=== PATIENT | male | born 1945 | race Caucasian/White ===

== ENCOUNTER → 2023-06-14 08:08 | Outpatient (REF) | payer MEDICARE, OTHER, SELFPAY ==
[2023-06-14 10:18] LABS: % Basophils 0.8 % (0-2); % Eosinophils 2.8 % (0-6); % Immature Granulocytes 0.3 % (0-0.5); % Lymphocytes 24.7 % (20.5-51.1); % Monocytes 7.9 % (1.7-9.3); % Neutrophils 63.5 % (42.2-75.2); Absolute Basophils 0.1 10^3/uL (0-0.2); Absolute Eosinophils 0.3 10^3/uL (0-0.7); Absolute Lymphocytes 2.2 10^3/uL (1.2-3.4); Absolute Monocytes 0.7 10^3/uL (0.1-0.6); Absolute Neutrophils 5.7 10^3/uL (1.4-6.5); Hematocrit 41.3 % (39.0-52.0); Mean Corp Hgb Conc. 33.9 g/dL (33.0-37.0); Mean Corpuscular Hgb 32.5 pg (27.0-31.0); Mean Corpuscular Volume 95.8 fL (80.0-94.0); Mean Platelet Volume 9.5 fL (7.4-10.4); Nucleated Red Blood Cells % 0 % (-); Platelet Count 199 10^3/uL (130-400); Red Blood Cell Count 4.31 10^6/uL (4.70-6.10); Red Cell Dist. Width 12.4 % (11.5-14.5)
[2023-06-14 10:26] LABS: ALT (SGPT) 33 U/L (0-50); AST (SGOT) 39 U/L (17-59); Albumin 4.2 g/dl (3.5-5.0); Alkaline Phosphatase 63 U/L (38-126); Blood Urea Nitrogen 19 mg/dl (9-20); Calcium 9.4 mg/dl (8.4-10.2); Carbon Dioxide 26 mmol/L (22-30); Chloride 106 mmol/L (98-107); Glucose 93 mg/dl (70-99); Potassium 4.3 mmol/L (3.5-5.1); Sodium 138 mmol/L (135-145); Total Protein 7.2 g/dl (6.3-8.2); eGFR > 60.00
[2023-06-14 10:55] LABS: Urine Albumin Negative (Neg - Trace); Urine Bilirubin Negative (Negative); Urine Character Clear (Clear); Urine Color Yellow; Urine Glucose Negative (Negative); Urine Ketone Negative (Negative); Urine Leukocyte Negative (Negative); Urine Nitrite Negative (Negative); Urine Occult Blood Negative (Negative); Urine Specific Gravity 1.015 (<1.030); Urine Urobilinogen Negative (Neg - 1+)
== END ==
LOC: REG 08:08
PROVIDERS: ATTENDING PHYSICIAN Specialist; FAMILY PHYSICIAN Internal Medicine
DX: R80.9 Proteinuria, unspecified (principal); I10 Essential (primary) hypertension; R06.09 Other forms of dyspnea; N18.30 Chronic kidney disease, stage 3 unspecified
CPT/HCPCS: 36415; 80053; 81003; 85025

== ENCOUNTER → 2023-06-27 06:30 | Outpatient (REF) | payer MEDICARE, OTHER, SELFPAY ==
[2023-06-27 07:44] LABS: HDL Cholesterol 53 mg/dl; LDL Cholesterol, Calculated 67 mg/dl; Total Cholesterol 140 mg/dl (50-199); Triglyceride 103 mg/dl (10-149); Very Low Density Lipoprotein 20 mg/dl (0-30)
[2023-06-27 08:20] LABS: PSA, Total - Screen 1.19 ng/ml (0.0-4.0)
== END ==
LOC: REG 06:30
PROVIDERS: ATTENDING PHYSICIAN Internal Medicine
DX: Z00.00 Encounter for general adult medical examination without abnormal findings (principal); I10 Essential (primary) hypertension; Z12.5 Encounter for screening for malignant neoplasm of prostate
CPT/HCPCS: 36415; 80061; G0103

== ENCOUNTER → 2023-07-11 11:25 | Outpatient (REF) | payer MEDICARE, OTHER, SELFPAY | LOC: RAD 11:25 | PROVIDERS: ATTENDING PHYSICIAN Physician Assistant; FAMILY PHYSICIAN Nurse Practitioner Adult Health | DX: M12.812 Other specific arthropathies, not elsewhere classified, left shoulder (principal); M25.512 Pain in left shoulder; M48.00 Spinal stenosis, site unspecified | CPT/HCPCS: 72100; 73030 ==

== ENCOUNTER → 2023-11-08 07:18 | Outpatient (REF) | payer MEDICARE, OTHER, SELFPAY ==
[2023-11-08 08:47] LABS: % Basophils 0.7 % (0-2); % Eosinophils 3.2 % (0-6); % Immature Granulocytes 0.3 % (0-0.5); % Monocytes 6.4 % (1.7-9.3); % Neutrophils 57.4 % (42.2-75.2); Absolute Basophils 0.1 10^3/uL (0-0.2); Absolute Eosinophils 0.3 10^3/uL (0-0.7); Absolute Monocytes 0.6 10^3/uL (0.1-0.6); Absolute Neutrophils 5.4 10^3/uL (1.4-6.5); Hematocrit 42.8 % (39.0-52.0); Hemoglobin 14.1 g/dL (13.0-18.0); Mean Corp Hgb Conc. 32.9 g/dL (33.0-37.0); Mean Corpuscular Hgb 32.1 pg (27.0-31.0); Mean Corpuscular Volume 97.5 fL (80.0-94.0); Mean Platelet Volume 9.3 fL (7.4-10.4); Nucleated Red Blood Cells % 0 % (-); Platelet Count 201 10^3/uL (130-400); Red Blood Cell Count 4.39 10^6/uL (4.70-6.10); White Blood Cell Count 9.4 10^3/uL (4.8-10.8)
[2023-11-08 09:15] LABS: ALT (SGPT) 33 U/L (0-50); AST (SGOT) 30 U/L (17-59); Albumin 4.4 g/dl (3.5-5.0); Alkaline Phosphatase 72 U/L (38-126); Blood Urea Nitrogen 27 mg/dl (9-20); Calcium 9.7 mg/dl (8.4-10.2); Carbon Dioxide 28 mmol/L (22-30); Chloride 104 mmol/L (98-107); Glucose 94 mg/dl (70-99); Iron 97 ug/dl (49-181); Potassium 4.2 mmol/L (3.5-5.1); Sodium 140 mmol/L (135-145); Total Bilirubin 0.7 mg/dl (0.2-1.3); Total Protein 7.2 g/dl (6.3-8.2); eGFR > 60.00
[2023-11-08 09:25] LABS: Percent Saturation 31 % (20-50); Total Iron Binding Capacity 307 ug/dl (261-462)
[2023-11-08 09:43] LABS: TSH Reflex To Free T4 2.06 uIU/ml (0.47-4.68)
== END ==
LOC: REG 07:18
PROVIDERS: ATTENDING PHYSICIAN Specialist; FAMILY PHYSICIAN Internal Medicine
DX: R80.9 Proteinuria, unspecified (principal); I10 Essential (primary) hypertension; N18.30 Chronic kidney disease, stage 3 unspecified; R53.83 Other fatigue
CPT/HCPCS: 36415; 80053; 82728; 83540; 83550; 84443; 85025

== ENCOUNTER → 2024-03-26 15:17 | Outpatient (REF) | payer MEDICARE, OTHER, SELFPAY | LOC: RCS 15:17 | PROVIDERS: ATTENDING PHYSICIAN Student in an Organized Health Care Education/Training Program; FAMILY PHYSICIAN Nurse Practitioner Adult Health | DX: I35.0 Nonrheumatic aortic (valve) stenosis (principal) | CPT/HCPCS: 93306 ==

== ENCOUNTER 2024-06-09 13:36 | Day surgery (SDC) | payer OTHER, SELFPAY ==
[2024-06-09 07:52] VITALS: BP 146/74
--- NOTE | 2024-06-09 09:16 | ED.GENMED ---
History of Present Illness
General
Chief Complaint: Swallowing Problem
Source: patient
Time Seen by Provider: 06/09/24 08:56
History of Present Illness
History of Present Illness:
79-year-old male presents emergency room stating he has a obstructed esophagus. Patient was consuming chicken soup last night when a piece of chicken seem to get stuck. Since then he has been spitting up saliva and unable to swallow any liquids.
Patient's had similar event in the past requiring endoscopy. No other complaints.
Past History
Past History
ED Past Medical History: GERD, Hypercholesterolemia and Other (bph)
ED Past Surgical History: Appendectomy, Cholecystectomy and Orthopedic (Back surgery to repair a slipped disc)
Social History
Tobacco: Former smoker
Alcohol: Occasional
Drug: None
Personal:
Living: with family
Phy Exam
Physical Exam
Physical Exam:
General: Awake, Alert, Oriented X3. No acute distress. Spitting secretions into a large ball of tissues
Vitals: unremarkable
Head: Atraumatic
Eyes: Pupils equal, EOMI
Throat: Airway intact, no exudates
Neck: Trachea midline
Lungs: Clear and equal b/l
Heart: Regular rate, no murmurs
Abd: Soft, Nontender, No pulsatile mass
Neuro: Nonfocal
Skin: Warm, dry, no rash
Extremities: pulses equal b/l, no edema
Course
Orders/Labs/Results
Orders:
Orders
06/09/24 09:15
Glucagon [GlucaGen] 1 mg IV NOW STA
06/09/24 12:11
Dexamethasone Sod Phosphate [Decadron] 20 mg .ROUTE .STK-MED ONE
Lidocaine HCl/Pf [Xylocaine-Mpf 1% Vial] 50 mg .ROUTE .STK-MED ONE
Rocuronium [place] [Rocuronium] 50 mg .ROUTE .STK-MED ONE
Sugammadex Sodium [Bridion] 200 mg .ROUTE .STK-MED ONE
06/09/24 12:12
Midazolam HCl [Versed] 2 mg .ROUTE .STK-MED ONE
Ondansetron Injectable [Zofran] 4 mg .ROUTE .STK-MED ONE
Propofol [Diprivan] 20 ml .ROUTE .STK-MED
Succinylcholine Chloride [Succinylcholine] 200 mg .ROUTE .STK-MED ONE
06/09/24 12:40
0.9% Sodium Chloride 1000 ml [Nss] 1,000 ml IV BOLUS
Vital Signs
Initial and Last Documented VS:
Initial Vital Signs
Temp Pulse Resp BP Pulse Ox
97.7 F 69 18 146/74 99
06/09/24 07:52 06/09/24 07:52 06/09/24 07:52 06/09/24 07:52 06/09/24 07:52
Last Documented Vital Signs
Temp Pulse Resp BP Pulse Ox
97.6 F 67 16 146/74 100
06/09/24 13:37 06/09/24 13:37 06/09/24 13:37 06/09/24 07:52 06/09/24 13:37
MDM/Problems Addressed
Differential Diagnosis Includes:
Esophageal food impaction, esophageal stricture, GERD
MDM/Problems Addressed:
Patient presents with signs and symptoms of a obstructed esophagus due to food impaction. Patient did not improve with IV glucagon. Patient evaluated by GI who will take him to the GI lab for endoscopic removal of food impaction
*Pulse Oximetry
Patient hypoxic: no
*Critical Care Note
Total Time (30-74mins, 75-104mins- exclusive of procedures): Not Applicable
Patient Management
Social determinants of health affecting care: Strong social support
ED Attending Note
-
Portions of this chart may have been created with voice recognition software.� Occasional wrong word or��sound alike� substitutions may have occurred due to the inherent limitations of voice recognition software.
Discharge Plan
Departure
Patient Disposition: GI LAB
Date of Disposition: 06/09/24
Time of Disposition: 11:25
Presentation/result/management discussed w/ accepting MD/DO: Dr. Vaz
Discharge Problem:
Food impaction of esophagus
Interventions
Interventions:
*Risk Screen - Suicide Last Done: 06/09/24 07:52
*General Assessment Last Done: 06/09/24 07:52
*Neglect/Abuse Screening Last Done: 06/09/24 07:52
*Nursing Disposition Last Done: 06/09/24 12:41
QJ-Dvbogo-Iavlonaynv Assessment Last Done: 06/09/24 09:18
ED-EENT Assessment Last Done: 06/09/24 09:18
ED- Neurological Assessment Last Done: 06/09/24 09:18
ED- Pulmonary Assessment Last Done: 06/09/24 09:18
Discharge Date and Time
Discharge Date/Time: 06/09/24 12:42
[2024-06-09 09:18] VITALS: BMI 24.9
[2024-06-09] MEDS: GlucaGen 1 MG IV (09:30)
--- NOTE | 2024-06-09 12:03 | CON.GI ---
Addendum entered and electronically signed by Ferdinand Vaz DO 06/09/24 13:01:
I saw and examined the patient.
The ELECTROMECHANICAL TECHNICIAN's note was reviewed and I agree with the note.
Comment: Plan for urgent EGD today, 06/09/2024, given inability to tolerate/manage secretions in setting of food impaction. No relief after IV Glucagon. Discussed risks and benefits of endoscopy with both patient and family at bedside. See same day
EGD report for additional findings/recommendations.
Original Note:
Consultation
-
Date/Time Consultation Requested: 06/09/24 1135
Date/Time Consultation Performed: 06/09/24 1145
Requesting Provider: Dr. Ventura
Performing Provider: Dr. Vaz/JEFF Paulino
Reason for Consultation: food impaction
Medical History
Chief Complaint / HPI
Chief Complaint: food impaction
History of Present Illness:
79-year-old male with past medical history of BPH, hypertension, hyperlipidemia, renal insufficiency, prior history of peptic ulcer disease with H. 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
Schatzki's ring, hiatal hernia (2018) who presents to the emergency room today with food impaction of chicken yesterday afternoon. Patient states that he was eating chicken noodle soup from local [employer] restaurant with large chunks of chicken and
it. He felt the chicken get lodged in the center of his chest. Despite multiple attempts at dislodgment he was unable to pass this. This included forced regurgitation, liquids without abatement of symptoms. The patient was unable to tolerate
secretions. He did wait to see if this would eventually pass. He sat upright and did wait to come to the emergency room until this a.m. In the ER they tried glucagon. They also tried a liquid trial with inability to tolerate secretions. We are
asked to evaluate for food bolus. At the present time the patient is in no apparent distress. He is with his family member. He feels discomfort in the bottom of his esophagus where the sternum meets. He denies any fevers, chills, melena,
hematochezia, odynophagia, early satiety or unintentional weight loss. He did require EGD with food bolus obstruction of pickel back in 2018. The patient does not take any NSAIDs. Medications include atorvastatin, doxazosin and finasteride. He
does not smoke. He does not drink any alcohol. No family history of gastrointestinal malignancy or IBD. Plan is for urgent EGD. Discussed risk benefit ratios and alternatives. Also discussed that he would require intubation for this procedure.
He has a ride home for after procedure.
Past Medical History
Past Medical History: Other (BPH, hypertension, hyperlipidemia, renal insufficiency, peptic ulcer disease with H. pylori. Eradicated. Spinal stenosis. Malignant growth right eye, food impaction, Schatzki's ring, hiatal hernia)
Social History
Tobacco: Non-Smoker
Alcohol: None
Drug: None
Family History
Family History: Other (Family history gastrointestinal malignancy or IBD)
Allergies / Home Medications
Allergy/AdvReac Type Severity Reaction Status Date / Time
No Known Allergies Allergy Unverified 06/09/24 07:52
�Medication �Instructions �Recorded
2nd Unknown Bph Med 1 tab PO DAILY 11/30/17
Omeprazole 1 tab PO DAILY 11/30/17
Unknown Bph Med 1 tab PO DAILY 11/30/17
cephalexin 500 mg capsule 500 mg PO TID #21 caps 12/23/18
Review of Systems
-
All other systems: A 12 pt ROS was Negative except as stated above in HPI
Vital Signs
Temp Pulse Resp BP Pulse Ox
97.7 F 69 18 146/74 99
06/09/24 07:52 06/09/24 07:52 06/09/24 07:52 06/09/24 07:52 06/09/24 07:52
Physical Exam
Exam
General: No Apparent Distress
HEENT: Anicteric
Respiratory: Clear
Cardiac: Regular Rhythm
GI: Soft, Non Tender, Non Distended and Normal Bowel Sounds
Musculoskeletal: No Edema
Skin: Warm and Dry
Neuro: AO x 3
Psych: Calm
Results
Diagnostic Image Results:
None
Prior GI Procedures:
EGD 12/25/2017 (Dr. Neal) - Tortuous esophagus.
- Abnormal esophageal motility, consistent with
presbyesophagus.
- Mild Schatzki ring.
- Small hiatal hernia.
- Chronic gastritis. Biopsied.
- Normal duodenal bulb.
- Marked esophogeal dysmotility with acute angle just
above a Schatzki ring, no stricture no resistance to
passage of the scope. Ring is wide open
EGD: 11/30/2017 (Dr. Heller) - Normal upper third of esophagus, middle third of
esophagus and lower third of esophagus.
- Food at the lower esophageal sphincter. Removal was
successful.
- Moderate Schatzki ring.
- Small hiatal hernia.
- Food was found in the stomach.
- Normal examined duodenum.
EGD 04/29/2017 (Dr. Neal) - Tortuous esophagus.
- Abnormal esophageal motility, suspicious for
presbyesophagus.
- Medium-sized hiatal hernia.
- Chronic gastritis. Biopsied.
- Normal third portion of the duodenum.
- Mild Schatzki ring.
COLO 01/28/2023 (Dr. Rhodes) - Diverticulosis in the sigmoid colon.
- Internal hemorrhoids.
- No specimens collected.
Colonoscopy: 12/16/2014 (Dr. Neal) - Diverticulosis in the sigmoid colon.
- The examination was otherwise normal.
Assessment / Plan
-
79-year-old male with past medical history of BPH, hypertension, hyperlipidemia, renal insufficiency, prior history of peptic ulcer disease with H. 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
Schatzki's ring, hiatal hernia (2018) who presents to the emergency room today with food impaction of chicken yesterday afternoon. We are asked to evaluate for the same. The patient was eating large chunk of chicken from chicken soup. Has been
lodged since yesterday afternoon. Inability to tolerate liquids or oral secretions despite attempts in ER with glucagon and liquid trial. Attempted forced regurgitation at home. No chest pain. No crepitus. No shortness of breath. Lungs clear.
Patient has not had any liquids. Discussed with ER will give IV fluids. Plan on urgent endoscopy. Discussed with patient and family member at bedside. Will require intubation for EGD for airway protection.
Impression:
Food impaction
History of Schatzki's ring
Plan:
-NPO
-IV fluids
-Urgent endoscopy
-Patient has ride home post endoscopy.
-Further recommendations to be forthcoming after EGD.
-
-
Thank you for consultation and allowing me to participate in the patient's care. Please call the occupational medicine specialist GI physician during the after hours with any questions or concerns.
[2024-06-09 13:37] VITALS: BP 146/74
[2024-06-09 13:45] VITALS: BP 133/82
[2024-06-09 14:02] VITALS: BP 131/72
[2024-06-09 14:15] VITALS: BP 135/76
== END 2024-06-09 14:41 | disposition home or self-care (01) ==
LOC: GI 13:36
PROVIDERS: ATTENDING PHYSICIAN Student in an Organized Health Care Education/Training Program; EMERGENCY PHYSICIAN Emergency Medicine
DX: T18.108A Unspecified foreign body in esophagus causing other injury, initial encounter (principal); T18.128A Food in esophagus causing other injury, initial encounter; W44.F3XA Food entering into or through a natural orifice, initial encounter; K22.2 Esophageal obstruction; K22.10 Ulcer of esophagus without bleeding
CPT/HCPCS: 43235; 96374; 99284; J1610

== ENCOUNTER → 2024-07-27 07:36 | Outpatient (REF) | payer MEDICARE, OTHER, SELFPAY ==
[2024-07-27 08:26] LABS: % Basophils 0.9 % (0-2); % Immature Granulocytes 0.4 % (0-0.5); % Lymphocytes 33.5 % (20.5-51.1); % Monocytes 6.1 % (1.7-9.3); % Neutrophils 55.1 % (42.2-75.2); Absolute Basophils 0.1 10^3/uL (0-0.2); Absolute Eosinophils 0.3 10^3/uL (0-0.7); Absolute Lymphocytes 2.9 10^3/uL (1.2-3.4); Absolute Monocytes 0.5 10^3/uL (0.1-0.6); Absolute Neutrophils 4.7 10^3/uL (1.4-6.5); Hemoglobin 13.7 g/dL (13.0-18.0); Mean Corp Hgb Conc. 33.4 g/dL (33.0-37.0); Mean Corpuscular Hgb 32.4 pg (27.0-31.0); Mean Corpuscular Volume 96.9 fL (80.0-94.0); Mean Platelet Volume 9.3 fL (7.4-10.4); Nucleated Red Blood Cells % 0 % (-); Platelet Count 173 10^3/uL (130-400); Red Blood Cell Count 4.23 10^6/uL (4.70-6.10); Red Cell Dist. Width 12.6 % (11.5-14.5); White Blood Cell Count 8.6 10^3/uL (4.8-10.8)
[2024-07-27 09:07] LABS: ALT (SGPT) 26 U/L (0-50); AST (SGOT) 27 U/L (17-59); Albumin 4.2 g/dl (3.5-5.0); Alkaline Phosphatase 62 U/L (38-126); Blood Urea Nitrogen 22 mg/dl (9-20); Calcium 9.7 mg/dl (8.4-10.2); Carbon Dioxide 27 mmol/L (22-30); Chloride 104 mmol/L (98-107); Glucose 93 mg/dl (70-99); HDL Cholesterol 51 mg/dl; LDL Cholesterol, Calculated 68 mg/dl; Sodium 139 mmol/L (135-145); Total Bilirubin 1.2 mg/dl (0.2-1.3); Total Cholesterol 140 mg/dl (50-199); Total Protein 6.7 g/dl (6.3-8.2); Triglyceride 105 mg/dl (10-149); Very Low Density Lipoprotein 21 mg/dl (0-30); eGFR > 60.00
[2024-07-27 10:05] LABS: PSA, Total - Screen 0.78 ng/ml (0.0-4.0)
== END ==
LOC: REG 07:36
PROVIDERS: ATTENDING PHYSICIAN Internal Medicine
DX: Z00.00 Encounter for general adult medical examination without abnormal findings (principal); Z12.5 Encounter for screening for malignant neoplasm of prostate; T18.128A Food in esophagus causing other injury, initial encounter; E78.5 Hyperlipidemia, unspecified; Z68.30 Body mass index [BMI] 30.0-30.9, adult
CPT/HCPCS: 36415; 80053; 80061; 85025; G0103

== ENCOUNTER 2024-08-04 06:23 | Day surgery (SDC) | payer MEDICARE, OTHER, SELFPAY | END 2024-08-04 15:24 | disposition home or self-care (01) | LOC: GI 06:23 | PROVIDERS: ATTENDING PHYSICIAN Student in an Organized Health Care Education/Training Program; FAMILY PHYSICIAN Internal Medicine | DX: K22.2 Esophageal obstruction (principal); K44.9 Diaphragmatic hernia without obstruction or gangrene | CPT/HCPCS: 43249 ==

== ENCOUNTER → 2025-01-07 12:29 | Outpatient (REF) | payer MEDICARE, OTHER, SELFPAY ==
[2025-01-07 14:31] LABS: Urine Character Clear (Clear)
[2025-01-07 14:47] LABS: Urine Squamous Cell 0-2 /LPF (Few)
[2025-01-07 14:50] LABS: Urine Red Blood Cell 0-2 /HPF (0-2)
== END ==
LOC: REG 12:29
PROVIDERS: ATTENDING PHYSICIAN Specialist; FAMILY PHYSICIAN Nurse Practitioner Adult Health
DX: I10 Essential (primary) hypertension (principal)
CPT/HCPCS: 81003; 81015

== ENCOUNTER → 2025-01-14 09:21 | Outpatient (REF) | payer MEDICARE, OTHER, SELFPAY | LOC: REG 09:21 | PROVIDERS: ATTENDING PHYSICIAN Specialist; FAMILY PHYSICIAN Nurse Practitioner Adult Health | DX: I10 Essential (primary) hypertension (principal); R80.9 Proteinuria, unspecified; E78.5 Hyperlipidemia, unspecified | CPT/HCPCS: 36415; 82570; 84156 ==

== ENCOUNTER 2025-03-12 11:17 | Day surgery (SDC) | payer MEDICARE, OTHER, SELFPAY ==
[2025-03-12] VITALS (15 sets, daily range): BP systolic 108–151; BP diastolic 61–94; BMI 25.9
[2025-03-12 03:50] LABS: Hematocrit 42.0 % (39.0-52.0); Hemoglobin 14.2 g/dL (13.0-18.0); Mean Corp Hgb Conc. 33.8 g/dL (33.0-37.0); Mean Corpuscular Volume 95.5 fL (80.0-94.0); Nucleated Red Blood Cells % 0 % (-); Platelet Count 178 10^3/uL (130-400); Red Cell Dist. Width 12.4 % (11.5-14.5)
[2025-03-12 04:11] LABS: ALT (SGPT) 39 U/L (0-50); AST (SGOT) 42 U/L (17-59); Albumin 4.6 g/dl (3.5-5.0); Alkaline Phosphatase 45 U/L (38-126); Blood Urea Nitrogen 31 mg/dl (9-20); Calcium 9.6 mg/dl (8.4-10.2); Carbon Dioxide 20 mmol/L (22-30); Chloride 111 mmol/L (98-107); Glucose 102 mg/dl (70-99); Lipase 111 U/L (23-300); Potassium 4.6 mmol/L (3.5-5.1); Sodium 144 mmol/L (135-145); Total Protein 7.7 g/dl (6.3-8.2); eGFR > 60.00
[2025-03-12 04:53] LABS: Urine Character Clear (Clear)
--- NOTE | 2025-03-12 04:57 | ED.GENMED ---
History of Present Illness
General
Chief Complaint: Abdominal Symptoms
Source: patient
Exam Limitations: none
Time Seen by Provider: 03/12/25 04:24
Nursing documentation reviewed up to this point in time: agreed with
History of Present Illness
History of Present Illness:
79-year-old male with a past medical history of GERD, hiatal hernia, PUD who presents to the emergency department concern for esophageal food bolus. Patient reports that yesterday morning at around 8 AM he was eating breakfast and had a large piece
of sausage and when he swallowed it he felt that he got stuck in his lower esophagus. He says he has not been able to get it to pass since despite trying to drink water, soda. He says he has spit up/vomited anything he tries to swallow including
mucus. Came to the ER for treatment. Had similar episode in July [address] Vaz. Denies any breathing issues or any other acute issues.
Past History
Past History
ED Past Medical History: GERD, Hypercholesterolemia and Other (bph)
ED Past Surgical History: Appendectomy, Cholecystectomy and Orthopedic (Back surgery to repair a slipped disc)
Social History
Tobacco: Former smoker
Alcohol: Occasional
Drug: None
Personal:
Living: with family
Review of Systems
Review of Systems
All Other Systems: ROS reviewed and negative except as documented in HPI and ROS
Respiratory: Denies trouble breathing
Cardiac: Reports chest pain (Esophageal food obstruction)
ABD/GI: Reports vomiting; Denies abdominal pain
Phy Exam
Physical Exam
Physical Exam:
General: Awake, alert, oriented x3; sitting up in bed holding emesis bag and spitting into it
Head: Normocephalic, atraumatic
Eyes: Conjunctiva normal
Throat: Airway intact, handling secretions
Neck: Trachea midline, supple without meningismus
Lungs: Clear to auscultation bilaterally, no wheezing, rales, rhonchi
Heart: Regular rate and rhythm, no murmurs, gallops, or rubs
Abd: Soft, non distended, nontender
Neuro: Grossly intact
Extremities: Warm and well-perfused
Scores
Heart Failure Risk
Heart Failure Risk Score: Not Applicable
Heart Score for Chest Pain Patients
STEMI patient?: Not applicable
Withdrawal Assessment of Alcohol
Withdrawal Assessment Completed?: Not applicable
Course
Orders/Labs/Results
Orders:
Orders
03/12/25 01:47
IV Insert/Care/Rem.- Treatment PRN
03/12/25 03:34
Complete Blood Count/With Diff Urgent
Comprehensive Metabolic Panel Urgent
Lipase Urgent
03/12/25 03:35
Urinalysis Reflex To Culture Urgent
Date Specimen was Collected: 03/12/25
Time Specimen was Collected: 01:47
Urine Microscopic Reflex Cult Urgent
Urine Culture Urgent
JORDEN Source: U
Specimen Description:
Date Specimen was Collected: 03/12/25
Time Specimen was Collected: 01:47
03/12/25 04:54
Glucagon [GlucaGen] 1 mg IV NOW STA
03/12/25 04:56
Consult Gastroenterology [GASTROINTESTINAL CONSULT] Urgent
Consulting Provider: Blaze Green
Was physician already notified: Yes
03/12/25 06:42
Glucagon [GlucaGen] 1 mg IV NOW STA
Abnormal Lab Results
03/12/25 03/12/25
03:34 03:35
RBC 4.40 L 10^6/uL
(4.70-6.10)
MCV 95.5 H fL
(80.0-94.0)
MCH 32.3 H pg
(27.0-31.0)
Absolute Neuts (auto) 7.0 H 10^3/uL
(1.4-6.5)
Chloride 111 H mmol/L
(98-107)
Carbon Dioxide 20 L mmol/L
(22-30)
BUN 31 H mg/dl
(9-20)
Glucose 102 H mg/dl
(70-99)
Urine Ketones 3+ A
(Negative)
Urine Bacteria (Reflex) Moderate A
(Negative)
Urine Albumin (Reflex) 2+ A
(Neg - Trace)
03/12/25 03:34
03/12/25 03:34
Vital Signs
Initial and Last Documented VS:
Initial Vital Signs
Temp Pulse Resp BP Pulse Ox
37.0 C 77 20 151/85 97
03/12/25 01:42 03/12/25 01:42 03/12/25 01:42 03/12/25 01:42 03/12/25 01:42
Last Documented Vital Signs
Temp Pulse Resp BP Pulse Ox
37.0 C 65 16 140/77 98
03/12/25 01:42 03/12/25 07:05 03/12/25 07:14 03/12/25 06:54 03/12/25 06:54
MDM/Problems Addressed
Differential Diagnosis Includes:
Esophageal food obstruction, esophagitis
MDM/Problems Addressed:
79-year-old male presents with concern for esophageal food obstruction after swallowing a piece of sausage yesterday morning. Has not been able to tolerate any fluids or mucus since. Vitals and exam as above. He had labs in triage which showed no
clinically significant abnormalities. Will trial glucagon.
No improvement after glucagon. Case discussed with GI for consultation plan to likely trial a second dose of glucagon.
Repeat dose of glucagon no effect. Discussed with GI plan to take for endoscopy. Monitor pending GI lab.
Chronic conditions affecting care:
GERD
*Pulse Oximetry
SaO2: 97
Oxygen Mode of Delivery: Room air
Patient hypoxic: no (97%)
*Critical Care Note
Total Time (30-74mins, 75-104mins- exclusive of procedures): Not Applicable
Data Reviewed
Source: patient and records
Patient Management
Discussion with other providers: [employer] (Discussed with gastroenterology)
ED Attending Note
-
Portions of this chart may have been created with voice recognition software.� Occasional wrong word or��sound alike� substitutions may have occurred due to the inherent limitations of voice recognition software.
Discharge Plan
Departure
Patient Disposition: GI LAB
Date of Disposition: 03/12/25
Time of Disposition: 05:37
Admit to doctor: Dr. Green
Presentation/result/management discussed w/ accepting MD/DO: GI
Discharge Problem:
Food impaction of esophagus
Prescriptions:
No Action
pantoprazole
Referrals:
Albaro Cartagena CRNP [Family Provider, Internal Medicine]
Interventions
Interventions:
*Risk Screen - Suicide Last Done: 03/12/25 01:42
*General Assessment Last Done: 03/12/25 01:42
*Neglect/Abuse Screening Last Done: 03/12/25 01:42
*ED- Fall Risk Assessment Last Done: 03/12/25 01:42
*ED COVID-19 Vaccine History Last Done: 03/12/25 01:42
*ED Influenza Vaccine History Last Done: 03/12/25 03:43
QH-Lbkhaa-Buoxfnktzh Assessment Last Done: 03/12/25 07:17
Discharge Date and Time
Print Language: SLOVAK
[2025-03-12 05:06] LABS: Urine Squamous Cell >30 /LPF (Few)
[2025-03-12 05:07] LABS: Urine Red Blood Cell 0-2 /HPF (0-2)
--- NOTE | 2025-03-12 06:39 | CON.GI ---
Consultation
-
Date/Time Consultation Performed: 03/12/25
Performing Provider: Ramiro Green MD
Reason for Consultation: food impaction
Medical History
Chief Complaint / HPI
Chief Complaint: dysphagia
History of Present Illness:
The patient is a 79-year-old male with past medical history as noted with foot infection. He has a history of food impactions, earlier this year, had repeat endoscopy with dilation of Schatzki's ring to 18 mm. His endoscopy also showed hiatal
hernia though otherwise was unremarkable. He was switched from omeprazole to pantoprazole and has had excellent control of his heartburn since then and has had no dysphagia until yesterday when eating sausage. Since then has not been able to
tolerate any liquids, with immediate regurgitation. He denies any chest pain or shortness of breath. He said no other major medical issues over the past 6 months.
Past Medical History
Past Medical History: Other (Schatzki's ring, HTN Hypercholesterolemia. PUD Peptic Ulcer Disease. Renal Insufficiency. Chronic kidney disease stage 3. Benign essential hypertension. Insomnia with sleep apnea (CPAP). Microhematuria. Benign prostatic
hyperplasia. Colonoscopy 12/16/2014. Left rotator cuff tear. Spinal stenosis. [place]ra)
Past Surgical History: Other (Cholecystectomy 12/27 Lumbar Laminectomy Appendectomy Therapeutic dilation procedure for treatment of Schatzki's ring 08/04/2024)
Social History
Tobacco: Non-Smoker
Alcohol: None
Family History
Family History: Reviewed & Not Pertinent
Allergies / Home Medications
Allergy/AdvReac Type Severity Reaction Status Date / Time
Sulfa (Sulfonamide Allergy Hives Verified 03/12/25 01:42
Antibiotics)
�Medication �Instructions �Recorded
2nd Unknown Bph Med 1 tab PO DAILY 11/30/17
Omeprazole 1 tab PO DAILY 11/30/17
Unknown Bph Med 1 tab PO DAILY 11/30/17
cephalexin 500 mg capsule 500 mg PO TID #21 caps 12/23/18
Review of Systems
-
All other systems: A 12 pt ROS was Negative except as stated above in HPI
Vital Signs
Temp Pulse Resp BP Pulse Ox
98.6 F 77 20 122/70 94
03/12/25 01:42 03/12/25 01:42 03/12/25 01:42 03/12/25 04:00 03/12/25 05:15
Physical Exam
Exam
General: NAD
HEENT: MMM, anicteric, no lymphadenopathy
Heart: Regular, no murmurs
Lungs: CTA bilaterally
Abdomen: normal bowel sounds, soft, no tenderness, no rebound or guarding, no masses, bruits or ascites
Extremeties: no edema
Skin: no rashes
Results
WBC 10.3 10^3/uL (4.8-10.8) 03/12/25 03:34
Hgb 14.2 g/dL (13.0-18.0) 03/12/25 03:34
Hct 42.0 % (39.0-52.0) 03/12/25 03:34
MCV 95.5 fL (80.0-94.0) H 03/12/25 03:34
Plt Count 178 10^3/uL (130-400) 03/12/25 03:34
Absolute Neuts (auto) 7.0 10^3/uL (1.4-6.5) H 03/12/25 03:34
Sodium 144 mmol/L (135-145) 03/12/25 03:34
Potassium 4.6 mmol/L (3.5-5.1) 03/12/25 03:34
Chloride 111 mmol/L (98-107) H 03/12/25 03:34
Carbon Dioxide 20 mmol/L (22-30) L 03/12/25 03:34
BUN 31 mg/dl (9-20) H 03/12/25 03:34
Creatinine 1.0 mg/dL (0.7-1.3) 03/12/25 03:34
Calcium 9.6 mg/dl (8.4-10.2) 03/12/25 03:34
Total Bilirubin 1.2 mg/dl (0.2-1.3) 03/12/25 03:34
AST 42 U/L (17-59) 03/12/25 03:34
ALT 39 U/L (0-50) 03/12/25 03:34
Alkaline Phosphatase 45 U/L (38-126) 03/12/25 03:34
Lipase 111 U/L (23-300) 03/12/25 03:34
Diagnostic Image Results:
Prior GI Procedures:
EGD:
Colonoscopy:
Assessment / Plan
-
1. Food impaction: With known Schatzki's ring, will plan endoscopy for removal. Discussed continued PPI and repeat EGD for further dilation in the future.
-
-
Thank you for consultation and allowing me to participate in the patient's care. Please call the engineer/conductor GI physician during the after hours with any questions or concerns.
== END 2025-03-12 11:18 | disposition home or self-care (01) ==
LOC: SDS 11:17
PROVIDERS: Emergency Medicine; ATTENDING PHYSICIAN Internal Medicine Gastroenterology; EMERGENCY PHYSICIAN Emergency Medicine; FAMILY PHYSICIAN Nurse Practitioner Adult Health
DX: T18.108A Unspecified foreign body in esophagus causing other injury, initial encounter (principal); T18.128A Food in esophagus causing other injury, initial encounter; Y93.9 Activity, unspecified; K22.2 Esophageal obstruction; K44.9 Diaphragmatic hernia without obstruction or gangrene
CPT/HCPCS: 43247; 80053; 81003; 81015; 83690; 85025; 87086; 96374; 96376; 99284; J1610